=== PATIENT | female | born 1965 | race Caucasian/White ===

== ENCOUNTER 2024-11-10 23:08 | Inpatient (IN) | payer OTHER ==
[~2024-11-10] VITALS: Ht 165.1 cm; Wt 97.3 kg
[~2024-11-10 23:08] MED LIST: Adenosine 3 MG/ML 2 ML Vial IV ONE; Amiodarone HCl 50 MG / ML 3 ML Amp IV ONE; Atropine Sulfate 0.1 MG/ML 10ML SYR IV ONE; Calcium Chloride 10% 10 ML SYR IV ONE; EPINEPhrine HCl 0.1 MG/ML 10ML SYR IV ONE; Magnesium Sulfate 500 MG / ML 2ML Vial IV ONE; Propofol 10mg/ml 20 ml Vial (Procedural) IV ONE; Rocuronium Bromide 10 MG/ML 5ML Injection IV ONE; Sodium Bicarb 8.4% 50 mEq Syringe IV ONE
[2024-11-10] MEDS ORDERED: fentaNYL citrate 1,000 MCG in NS 80 ML IV SCH (23:20)
[2024-11-10] MEDS ORDERED: Midazolam HCL 50 MG in NS 40 ML IV PRN (23:20)
[2024-11-10 23:21] LABS: Calcium, Ionized (POC) 1.11 mmol/L (1.10-1.46); Chloride (POC) 104 mmol/L (98-108); Creatinine (POC) 1.6 mg/dL (0.6-1.0); Glucose (ISTAT POC) 228 mg/dL (70-99); Hemoglobin (POC) 17.7 g/dL (12.0-16.0); Potassium (POC) 3.2 mmol/L (3.5-5.5); Sodium (POC) 140 mmol/L (135-148); Total CO2 (POC) 18 mmol/L (21-32)
[2024-11-10] MEDS ORDERED: NS 1,000 ML IV SCH (23:25)
[2024-11-10 23:30] LABS: BASOPHILS ABSOLUTE AUTO 0.23 K/mm3 (0.00-0.23); BASOPHILS PERCENT AUTO 1 % (0-2); EOSINOPHILS ABSOLUTE AUTO 0.21 K/mm3 (0.00-0.68); EOSINOPHILS PERCENT AUTO 1 % (0-6); Hematocrit 51.7 % (33.0-51.0); IMMATURE GRAN ABSOLUTE AUTO 1.22 K/mm3 (0.00-0.10); IMMATURE GRAN PERCENT AUTO 5 % (0-1); LYMPHOCYTES ABSOLUTE AUTO 19.25 K/mm3 (0.84-5.20); LYMPHOCYTES PERCENT AUTO 72 % (21-46); MONOCYTES ABSOLUTE AUTO 0.87 K/mm3 (0.16-1.47); MONOCYTES PERCENT AUTO 3 % (4-13); Mean Corpuscular HGB 26.9 pg (26.0-34.0); Mean Corpuscular HGB Conc 30.9 g/dL (31.5-36.5); Mean Corpuscular Volume 87 fL (80-100); NEUTROPHILS ABSOLUTE AUTO 5.06 K/mm3 (1.96-9.15); NEUTROPHILS PERCENT AUTO 19 % (41-73); NRBC ABSOLUTE 0.05 K/mm3 (0.00-0.02); NRBC Auto 0.2 /100 WBC (0.0-0.2); Platelet Count 163 K/mm3 (150-400); RDW Coefficient Variation 15.6 % (11.7-14.2); RDW Standard Deviation 49.5 fL (35.1-46.3); Red Blood Cell Count 5.94 M/mm3 (3.80-5.20); White Blood Cell Count 26.84 K/mm3 (4.00-11.30)
[2024-11-10 23:31] LABS: Base Excess Venous -18.3 mmol/L; Bicarbonate Venous 11.1 mmol/L (24.0-30.0); PCO2 Venous 63.7 mmHg (38-42); pH Blood Venous 6.95 (7.34-7.37)
[2024-11-10 23:50] LABS: Thyroid Stimulating Hormone 23.7 uIU/mL (0.360-4.800)
[2024-11-10] MEDS ORDERED: Sodium Bicarb 8.4% 1 MEQ/ML 50 ML Vial IV ONE (23:50)
[2024-11-10] MEDS ORDERED: FLU VACC TS2024-25(6MOS UP)/PF 45 MCG/0.5 ML SYRINGE IM ONE (23:50)
[2024-11-10 23:55] LABS: Albumin, Blood 3.4 g/dL (3.4-5.0); Albumin/Globulin Ratio 0.8 (0.8-1.8); Bilirubin, Total 0.4 mg/dL (0.1-1.0); Bun/Creatinine Ratio 19.5 (12.0-20.0); Calcium, Blood 9.6 mg/dL (8.5-10.1); Creatinine, Blood 1.33 mg/dL (0.40-1.00); Globulin, Blood 4.4 g/dL (2.2-4.0); Phosphorus, Blood 8.7 mg/dL (2.5-4.9); Potassium, Blood 3.3 mmol/L (3.5-5.5); Total Protein, Blood 7.8 g/dL (6.4-8.2)
[2024-11-11] VITALS (81 sets, daily range): BP systolic 63–220; BP diastolic 44–185
[2024-11-11] MEDS ORDERED: Potassium Chl 10MEQ/Water100ML 100 ML IV SCH ×3 (00:25→21:30)
[2024-11-11] MEDS ORDERED: Sodium Bicarb 8.4% Inj 150 MEQ in Dextrose 5% 1,000 ML IV SCH (00:30)
[2024-11-11] MEDS ORDERED: CefTRIAXone Sodium 1,000 MG in NS 50 ML IV ONE (01:00)
[2024-11-11] MEDS ORDERED: Vancomycin HCL 1,750 MG in NS 500 ML IV ONE (01:25)
[2024-11-11 01:26] LABS: D-Dimer, Quantitative >35.20 mg/L FEU (0.00-0.52); International Normalized Ratio 1.16; Prothrombin Time Results 12.3 Sec (9.7-11.5)
[2024-11-11] MEDS ORDERED: HydrALAZINE HCl 20 MG / ML 1ML Vial IV PRN ×2 (01:50→06:00)
[2024-11-11] MEDS ORDERED: Doxycycline Hyclate 100 MG in Dextrose 5% 250 ML IV SCH (02:09)
[2024-11-11 02:43] LABS: U Amphetamine Screen Not Detected; U Barbituate Screen Not Detected; U Benzodiazapine Screen Not Detected; U Buprenorphine Screen Not Detected; U Cannabinoids Screen DETECTED; U Cocaine Screen Not Detected; U Methadone Screen Not Detected; U Methamphetamine Screen Not Detected; U Opiates Screen Not Detected; U Oxycodone Screen Not Detected; U Phencyclidine Screen Not Detected
[2024-11-11] MEDS ORDERED: CHLO25B PO (03:38)
[2024-11-11] MEDS ORDERED: LISI20 PO (03:38)
[2024-11-11 03:39] LABS: Hematocrit 47.2 % (33.0-51.0); Hemoglobin 15.9 g/dL (11.5-16.0); Mean Corpuscular HGB Conc 33.7 g/dL (31.5-36.5); Mean Platelet Volume 10.3 fL (9.1-12.4); Platelet Count 270 K/mm3 (150-400); RDW Coefficient Variation 16.1 % (11.7-14.2); RDW Standard Deviation 44.8 fL (35.1-46.3); Red Blood Cell Count 5.88 M/mm3 (3.80-5.20); White Blood Cell Count 30.12 K/mm3 (4.00-11.30)
[2024-11-11] MEDS ORDERED: ATOR40TA PO (03:39)
[2024-11-11] MEDS ORDERED: ASPI81CH PO (03:39)
[2024-11-11 03:49] LABS: Mean Corpuscular Volume 80 fL (80-100)
[2024-11-11 04:00] LABS: Albumin, Blood 2.9 g/dL (3.4-5.0); Albumin/Globulin Ratio 0.8 (0.8-1.8); Bilirubin, Total 1.3 mg/dL (0.1-1.0); Bun/Creatinine Ratio 22.4 (12.0-20.0); Calcium, Blood 8.2 mg/dL (8.5-10.1); Creatinine, Blood 1.34 mg/dL (0.40-1.00); Globulin, Blood 3.7 g/dL (2.2-4.0); Potassium, Blood 2.9 mmol/L (3.5-5.5); Total Protein, Blood 6.6 g/dL (6.4-8.2)
[2024-11-11 05:02] LABS: Base Excess Venous -5.6 mmol/L; Bicarbonate Venous 20.3 mmol/L (24.0-30.0); PCO2 Venous 35.1 mmHg (38-42); pH Blood Venous 7.36 (7.34-7.37)
[2024-11-11] MEDS ORDERED: Potassium Chloride 40 MEQ in NS 250 ML IV ONE ×2 (05:15→17:25)
[2024-11-11 05:19] LABS: Influenza A, PCR NEGATIVE (NEGATIVE); Influenza B, PCR NEGATIVE (NEGATIVE); Resp Syncytial Virus, PCR NEGATIVE (NEGATIVE); SARS-Cov-2 (COVID-19) PCR, MMC NEGATIVE (NEGATIVE)
[2024-11-11] MEDS ORDERED: HydrALAZINE HCl 20 MG / ML 1ML Vial IV STA (05:19)
[2024-11-11] MEDS ORDERED: propofoL 100 ML IV SCH (06:25)
--- NOTE | 2024-11-11 06:26 | NUR ---
SHIFT SUMMARY PATIENT TO ICU 2 FROM ER AT APPROX 0045. PATIENT UNRESPONSIVE UPON ARRIVAL, PUPILS EQUAL AND REACTIVE BUT NO MOVEMENT AND NO CORNEAL REFLEX, EXTREMETIES FLACCID. NO COUGH OR GAG WHEN SUCTIONED. SEDATION OFF FOR APPROX 1 HOUR, PATIENT BP INCREASED AND HAVING SEIZURE LIKE ACTIVITY AND SEDATION WAS RESTARTED. ADDING PROPOFOL WITH VERSED AND FENTANYL. SP02 100% ON VENT AC VC 22/450/7/40%, RR 22. LS COARSE. HR SR 90s, BP HYPERTENSIVE ON ARRIVAL, NOW LABILE. SYSTOLICS <160 CURRENTLY. OG TO LIS DARK BROWN BILE FROM ETT. TEMP JAMIL PATENT AND DRAINING TO GRAVITY. SISTER AT BEDSIDE WITH MEDICATIONS AND MINIMAL HEALTH HISTORY.
--- NOTE | 2024-11-11 08:47 | NUR ---
DR DANIEL SANCHEZ AT BEDSIDE TO PLACE CENTRAL LINE. PT WITH CONTINUED HYPOTENSION WITH INCREASING LEVO. PT WITH CONTINUED TONIC CLONIC JERKING MOVEMENTS. 50 MG IV KWABENA GIVEN FROM RSI KIT AT THIS TIME PER DR SANCHEZ.
--- NOTE | 2024-11-11 10:29 | NUR ---
Pt. is intubated and not responsive. Pts. sister and niece are at bedside and welcome my visit. Facilitated a lie review. Family verbalize the Pts. difficult losses. Family also verbalized that the Pt. moved to [place] recently from [place] because of the Pts. health concerns, and to be close to family who can support her. Listen with empathy and a calming presence. With the permission of bedside family this rn gynecology prayed for the Pt. Family verbalized gratitude for the spiritual care visit.
[2024-11-11] MEDS ORDERED: Hydrogen Peroxide 1.5 % Solution MT SCH (12:00)
[2024-11-11] MEDS ORDERED: LORazepam 2 MG/ML 1ML Injection ONE (12:29)
[2024-11-11] MEDS ORDERED: LORazepam 2 MG/ML 1ML Injection IV ONE (12:35)
--- NOTE | 2024-11-11 12:39 | NUR ---
SEIZURE LIKE MOVEMENT DR SANCHEZ AT BEDSIDE. PT WITH MORE SEVERE TONIC CLONIC JERKS. ORDERS FOR IV ATIVAN NOW AND TO RESTART PROPOFOL. SEE FLOWSHEET.
--- NOTE | 2024-11-11 13:55 | NUR ---
WASTE 50ML FENTANYL WASTED DANIEL EDWARDS RN 20ML VERSED WASTED WITH JERRY WHITMORE
[2024-11-11 14:15] LABS: Albumin, Blood 2.4 g/dL (3.4-5.0); Albumin/Globulin Ratio 0.7 (0.8-1.8); Bilirubin, Total 1.3 mg/dL (0.1-1.0); Bun/Creatinine Ratio 28.9 (12.0-20.0); Calcium, Blood 7.7 mg/dL (8.5-10.1); Creatinine, Blood 1.42 mg/dL (0.40-1.00); Globulin, Blood 3.5 g/dL (2.2-4.0); Potassium, Blood 3.4 mmol/L (3.5-5.5); Total Protein, Blood 5.9 g/dL (6.4-8.2)
--- NOTE | 2024-11-11 15:22 | NUR ---
HR SUSTAINING IN 140S WHILE PREPING FOR EEG. PATIENT CURRENTLY OFF SEDATION FOR THE EEG STUDY SINUS TACH 120S-140S. MD NOTIFIED. NO NEW ORDERS AT THIS TIME.
[2024-11-11] MEDS ORDERED: Heparin Sodium,Porcine 5,000 UNIT/0.5 ML SDV SC SCH (16:00)
--- NOTE | 2024-11-11 17:55 | NUR ---
SHIFT SUMMARY PT REMAINS INTUBATED AND SEDATED AT THIS TIME. SEDATION STOPPED FOR EEG THIS AFTERNOON, THEN RESUMED AFTER EEG DONE. PROPOFOL INFUSING AT 30 MCG/KG/MIN. PT VENT SETTINGS UNCHANGED AT AC 14, TV 450, PEEP 7, FIO2 40%. PT WITH UNCHANGED NEURO STATUS. PT WITHOUT COUGH, GAG, OR CORNEAL REFLEXES. PT WITH SIGNIFICANT MYOCLONIC MOVEMENT WITHOUT SEDATION. PT DOES NOT RESPOND TO ANY NOXIOUS STIMULI. CENTRAL LINE TO RIJ PLACED THIS MORNING. AMIO INFUSING AT 0.5 MG/HR. LEVOPHED INFUSING AT 12 MCG/MIN. PT BP LABILE THIS SHIFT AND PT HR UP TO 150'S WITHOUT SEDATION. OGT REMAINS IN PLACE TO LIS WITH DARK BROWN OUTPUT NOTED. JAMIL TEMP PROBE IN PLACE WITH DARK YELLOW URINE OUTPUT NOTED. RECTAL TUBE PLACED THIS SHIFT. PT WITH CONTINUED LIQUID/LOOSE BROWN STOOL NOTED. PT FAMILY AT BEDSIDE AND UPDATED MULTIPLE TIMES THIS SHIFT BY DR SANCHEZ AND DYNAMIC ETCHING PROCESSOR. WILL CONTINUE TO MONITOR AND REPORT OFF TO ONCOMING RN.
[2024-11-11] MEDS ORDERED: Vasopressin 20 UNITS in NS 100 ML IV SCH (19:40)
[2024-11-11] MEDS ORDERED: Cetylpyridinium Chloride 1 EA MISC MT SCH (20:00)
--- NOTE | 2024-11-11 20:41 | NUR ---
ASSUMED CARE AT 1900 PATIENT REMAINS INTUBATED AND SEDATED ON PROPOFOL. NO MYOCLONIC JERKS AT THIS TIME. PATIENT HAS COUGH WHEN DEEP SUCTIONED THROUGH ETT. CORNEAL REFLEX PRESENT. NOT RESPONDING TO PAIN, GAZE FIXED UPWARDS. PUPILS EQUAL AND BRISK. EXTREMITIES FLACCID. SP02 98% ON VENT AC VC 22/450/5/30% RR 22. SUCTIONED SMALL AMOUNT OF THICK FARLEY FROM ETT. HR SR 90s, BP HYPOTENSIVE, LEVOPHED INFUSING TO MAINTAIN MAP >65, WILL ADD VASO IF NEEDED. OG TO LIS WITH DARK BROWN OUTPUT. TEMP JAMIL PATENT AND DRAINING TO GRAVITY. TEMP CURRENTLY 101.4, ICE PACKS AND FAN ON PATIENT. RECTAL TUBE DRAINING LIQUID BROWN STOOL. ORAL CARE DONE AND PATIENT REPOSITIONED. FAMIL AT BEDSIDE AT START OF SHIFT
[2024-11-12] VITALS (56 sets, daily range): BP systolic 67–145; BP diastolic 48–71
[2024-11-12 03:51] LABS: Hematocrit 44.5 % (33.0-51.0); Hemoglobin 15.4 g/dL (11.5-16.0); Mean Corpuscular HGB 26.7 pg (26.0-34.0); Mean Corpuscular HGB Conc 34.6 g/dL (31.5-36.5); Mean Corpuscular Volume 77 fL (80-100); Mean Platelet Volume 11.1 fL (9.1-12.4); Platelet Count 247 K/mm3 (150-400); RDW Standard Deviation 44.7 fL (35.1-46.3); Red Blood Cell Count 5.77 M/mm3 (3.80-5.20); White Blood Cell Count 26.93 K/mm3 (4.00-11.30)
[2024-11-12 04:01] LABS: BAND PERCENT MAN 4 % (0-8); BASOPHILS PERCENT MAN 0 % (0-2); EOSINOPHILS PERCENT MAN 0 % (0-6); LYMPHOCYTES % ATYPICAL MANUAL 2 % (0-0); LYMPHOCYTES ABSOLUTE MAN 3.77 K/mm3 (0.84-5.20); LYMPHOCYTES PERCENT MAN 12 % (21-46); MONOCYTES ABSOLUTE MAN 1.61 K/mm3 (0.16-1.47); MONOCYTES PERCENT MAN 6 % (4-13); NEUTROPHILS ABSOLUTE MAN 21.54 K/mm3 (1.96-9.15); SEG NEUTROPHILS PERCENT MAN 76 % (41-73); TOTAL CELLS COUNTED 100
[2024-11-12 04:04] LABS: Albumin, Blood 2.5 g/dL (3.4-5.0); Albumin/Globulin Ratio 0.7 (0.8-1.8); Bilirubin, Total 1.1 mg/dL (0.1-1.0); Bun/Creatinine Ratio 29.5 (12.0-20.0); Calcium, Blood 8.1 mg/dL (8.5-10.1); Creatinine, Blood 1.46 mg/dL (0.40-1.00); Globulin, Blood 3.7 g/dL (2.2-4.0); Potassium, Blood 3.9 mmol/L (3.5-5.5); Total Protein, Blood 6.2 g/dL (6.4-8.2)
[2024-11-12] MEDS ORDERED: NS 250 ML IV PRN (05:15)
[2024-11-12] MEDS ORDERED: CefTRIAXone Sodium 1,000 MG in NS 100 ML IV SCH (06:00)
[2024-11-12] MEDS ORDERED: Pantoprazole Sodium 40 MG Injection IV SCH (06:00)
--- NOTE | 2024-11-12 06:21 | NUR ---
SHIFT SUMMARY PATIENT REMAINS INTUBATED AND SEDATED ON PROPOFOL. PATIENT PUPILS ARE EQUAL AND REACTIVE, NO TRACKING OR MOVEMENT. CORNEAL REFLEX PRESENT AND PATIENT GRIMACES TO PAINFUL STIMULI. EXTREMITIES REMAIN FLACCID. SP02 98% ON VENT, ACVC 18/450/7/30%. HR SR 80s, BP HYPOTENSIVE, PATIENT ON LEVOPHED AND VASO FOR PART OF THE NIGHT ABLE TO TITRATE BOTH OFF, HOWEVER PATIENT NOW NEEDING LOW DOSE OF LEVOPHED THIS AM. AMIO DRIP REMAINS INFUSING. OG TO LIS WITH DARK BROWN OUTPUT. TEMP JAMIL PATENT AND DRAINING TO GRAVITY. TEMP DOWN TO 98.9 THIS AM. RECTAL TUBE DRAINING LIQUID BROWN STOOL TO GRAVITY. PATIENT REPOSITIONED Q2 HOURS. BED BATH DONE THIS SHIFT
--- NOTE | 2024-11-12 15:57 | NUR ---
Pt's adult children are flying in tomorrow, and then terminal withdrawal will be performed. Palliative Care will be available.
[2024-11-12] MEDS ORDERED: Heparin Sodium 5000 Units/ML 1ML MDV SC SCH (17:10)
--- NOTE | 2024-11-12 17:39 | NUR ---
"Spiritual Care | Comfort Care Visit. Pt. is on comfort care. Pts. sister and niece welcome my visit at bedside. Family verbalized that they will extubate sometime tonight. They asked this ic engineer to pray and if possible to be present when the Pt. is extubated. I let them know I would be nearing the end of my shift, but I would swing by before I checked out. Prayed for both the Pt. and family. Pts. sister verbalized gratitude for the spiritual care visits. I updated the on-call ic engineer should I be off shift."
[2024-11-12] MEDS ORDERED: LORazepam 2 MG/ML 1ML Injection IV PRN (17:55)
[2024-11-12] MEDS ORDERED: Morphine Sulfate 10 MG/ML 1MLSYR IV PRN (17:55)
[2024-11-12] MEDS ORDERED: Morphine Sulfate 20 MG/1ML 1 ML Oral Syringe SL PRN (17:55)
[2024-11-12] MEDS ORDERED: Atropine Sulfate 1% Opth Soln 2ML BTL SL PRN (18:00)
[2024-11-12] MEDS ORDERED: Promethazine HCl 25 MG Supp PR PRN (18:00)
[2024-11-12] MEDS ORDERED: Haloperidol Lactate Inj. 5 MG/ML Injection IV PRN (18:00)
--- NOTE | 2024-11-12 18:17 | NUR ---
UPDATE: SISTER AT BEDSIDE. EXPRESSED THEY ARE READY FOR EXTUBATION. DR NIELSON PLACED ORDERS FOR EXTUBATION AND COMFORT CARE. OSCAR NOTIFIED OF PLAN MOVING FORWARD FAMILY REQUESTED HIS PRESENCE.
--- NOTE | 2024-11-12 18:35 | NUR ---
"Spiritual Care | Pre-extubation EOL Decisions - [facility] The staff are preparing to do what is expected ot be a terminal extubation. Met with Daughter and niece. EOL Education is given and the family has chosen [facility] in [place] as their home. Family is aware that the staff is facing a shift change and has verbalized their understanding and flexibility."
--- NOTE | 2024-11-12 18:46 | NUR ---
EXTUBATED TO COMFORT CARE PATIENT PREMEDICATED WITH MORPHINE AND ATIVAN SEE MAR. ALL GTTS D/C'D. PATIENT EXTUBATED BY CAS CARMONA AT 1840. ALVARO AT BEDSIDE.
[2024-11-13] MEDS ORDERED: Scopolamine Hydrobromide Patch TOP SCH ×2 (00:05→00:15)
[2024-11-13] MEDS ORDERED: LORazepam 2 MG/ML 1ML Injection IV PRN (07:20)
[2024-11-13] MEDS ORDERED: levETIRAcetam 1,000 MG in NS 100 ML IV ONE (07:20)
--- NOTE | 2024-11-13 11:01 | NUR ---
ASSESSED PATIENT. FAMILY AT BEDSIDE. DISCUSSED WITH BEDSIDE RN. MEDICATIONS ADJUSTED DUE TO PAULAS AGITATION, POSSIBLE SEIZURE ACTIVITY PER BEDSIDE RN EARLIER THIS SHIFT. PATIENT APPEARS COMFORTABLE AT THIS TIME
--- NOTE | 2024-11-13 17:23 | NUR ---
FAMILY HELPFUL AT BEDSIDE, NO DISTRESS, RESPS EVEN AND NON LABORED, NO GRIMACING. REPOSITINED PRN AND FAMILY REQUEST. JAMIL TO GRAVITY, RECTAL TUBE IN PLACE, PALLIATIVE NURSE ROUNDED, PATIENTS SEIZURE LIKE ACTIVITY STOPPED, MEDICATED WITH ROXANOL AND ATIVAN PRN
[2024-11-14] MEDS ORDERED: Glycopyrrolate 0.2 MG/ML 5ML VIAL IV PRN (09:40)
--- NOTE | 2024-11-14 13:03 | NUR ---
FAMILY AT BEDSIDE THROUGH OUT SHIFT, RN EDCUATED ON DYING PROCESS. FOAM/SANGUINOUS FLUID LEAKING FROM PT'S NARES. PT'S RESPIRATIONS HAVE SLOWED, COARSE GURGGLES STILL PRESENT, BUT PT APPEARS MORE RELAXED. SISTER ISAAC AND NIECE RENEE ARE AT PT'S BEDSIDE CONTINUALLY. EMOTIONAL SUPPORT FROM CARE STAFF.
--- NOTE | 2024-11-14 16:38 | NUR ---
PT AT 16:20.
--- NOTE | 2024-11-14 18:18 | NUR ---
ICE BAGS PLACED ON PT'S EYES, HOB AT 45 DEGREE. IV'S REMOVED BY MIXER DIAMOND POWDER. INTERNAL JUGULAR ACCESS LEFT. JAMIL AND RECTAL TUBE D/C'D BY RN.
== END 2024-11-14 16:20 | DRG 296 ==
LOC: ER 23:08 → MEDS 23:46 → ICUE 23:46 → MEDS 11-12 21:29
PROVIDERS: Emergency Medicine; Internal Medicine; ADMIT Internal Medicine
PROC: 5A1945Z Respiratory Ventilation, 24-96 Consecutive Hours (ICD-10-PCS; principal; 2024-11-10)
PROC: 0BH17EZ Insertion of Endotracheal Airway into Trachea, Via Natural or Artificial Opening (ICD-10-PCS; 2024-11-10)
PROC: 3E033XZ Introduction of Vasopressor into Peripheral Vein, Percutaneous Approach (ICD-10-PCS; 2024-11-10)
PROC: 5A12012 Performance of Cardiac Output, Single, Manual (ICD-10-PCS; 2024-11-10)
PROC: 0T9B70Z Drainage of Bladder with Drainage Device, Via Natural or Artificial Opening (ICD-10-PCS; 2024-11-10)
PROC: 02HV33Z Insertion of Infusion Device into Superior Vena Cava, Percutaneous Approach (ICD-10-PCS; 2024-11-11)
DX: I46.9 Cardiac arrest, cause unspecified (principal); J96.01 Acute respiratory failure with hypoxia; R40.20 Unspecified coma; G93.1 Anoxic brain damage, not elsewhere classified; I42.1 Obstructive hypertrophic cardiomyopathy; R57.9 Shock, unspecified; Z51.5 Encounter for palliative care; Z66 Do not resuscitate; E87.20 Acidosis, unspecified; R00.1 Bradycardia, unspecified; E87.6 Hypokalemia; R56.9 Unspecified convulsions; I47.20 Ventricular tachycardia, unspecified; D72.829 Elevated white blood cell count, unspecified; Z95.810 Presence of automatic (implantable) cardiac defibrillator; Z86.73 Personal history of transient ischemic attack (TIA), and cerebral infarction without residual deficits; Z79.82 Long term (current) use of aspirin; Z78.1 Physical restraint status
CPT/HCPCS: 0241U; 31500; 36415; 36556; 51702; 70450; 71045; 71260; 80047; 80053; 82803; 82947; 83605; 83735; 84100; 84443; 84484; 85014; 85025; 85027; 85379; 85610; 85730; 87040; 87070; 87205; 92950; 93005; 93010; 93306; 93356; 94002; 94003; 95819; 99285-25; A9270; C1751; J0153; J0282; J0360; J0461; J0696; J1953; J2060; J2250; J2270; J2470; J2704; J3010; J3370; J3475; J3480; J7030; J7040; J7050; J7060; J7070; Q9967